=== PATIENT | female | born 2000 | race Two or more races ===

== ENCOUNTER 2020-12-21 13:59 | Emergency (ER) | payer BC ==
[~2020-12-21] VITALS: Ht 154.9 cm; Wt 63.0 kg
[2020-12-21] MEDS ORDERED: ACETAMINOPHEN 325MG TABLET PO ONE (16:30)
[2020-12-21 16:34] VITALS: BP 115/79
== END 2020-12-21 16:37 | disposition home or self-care (01) ==
LOC: ER 13:59
DX: S09.90XA Unspecified injury of head, initial encounter (principal); X58.XXXA Exposure to other specified factors, initial encounter; Y93.89 Activity, other specified; Y92.89 Other specified places as the place of occurrence of the external cause; Y99.8 Other external cause status
CPT/HCPCS: 81025; 99282